=== PATIENT | male | born 1995 | race Caucasian/White ===

== ENCOUNTER 2016-10-30 21:40 | Emergency (ER) | payer SELFPAY ==
[2016-10-30 21:45] VITALS: BP 114/69; BMI 28.1
--- NOTE | 2016-10-30 22:07 | DR.GENAD ---
HPI - PCP Primary Care Physician: nfd - Complaint/Symptoms Chief Complaint Doctors Comments: Patient denies history of cardiopulmonary disease. Chief Complaint:: pt states" for the past month my chest has been hurting and my vision gets distorted and i feel dizzy" - Source History Provided: Patient - Mode of Arrival Mode of Arrival: Ambulatory - Timing Onset of Chief Complaint: 10/09/16 PMH - PMH Past Medical History: No Past Medical History: GERD Past Surgical History: No Surgical History: No History - Family History History of Family Medical Conditions: Yes Family Medical History: Hypertension - Social History Does patient currently use any type of tobacco product: Yes Alcohol Use: Occasionally Do you use any recreational Drugs:: No Lives With: Family Lives Where: Home - infectious screening In the last 2 months have you had wt loss of >10#?: NO Have you had fever, night sweats or hemotysis?: No Have you traveled outside the country in the last 6 months?: No Isolation: Standard ROS - Review of Systems Constitutional: No Symptoms Reported Eyes: No Symptoms Reported ENTM: No Symptoms Reported Respiratoy: No Symptoms Reported Cardiovascular: No Symptoms Reported Gastrointestinal/Abdominal: No Symptoms Reported Genitourinary: No Symptoms Reported Neurological: No Symptoms Reported Musculoskeletal: No Symptoms Reported Integumentary: No Symptoms Reported Hematologic/Lymphatic: No Symptoms Reported Endocrine: No Symptoms Reported Psychiatric: No Symptoms Reported All Other Systems: Reviewed and Negative PE - Vital Signs Vitals: Temperature 98.3 F Pulse Rate 73 Respiratory Rate 18 Blood Pressure 114/69 O2 Sat by Pulse Oximetry 100 - General Limitations: No Limitations General Appearance: Alert, In No Apparent Distress - Head Head Exam: Normal Inspection, Atraumatic - ENT ENT Exam: Normal Exam, Normal Oropharynx External Ear Exam: Normal External Inspection TM/Canal Exam: Bilateral Normal Nose Exam: Normal Nose Exam Mouth Exam: Normal Inspection Throat Exam: Normal Inspection - Neck Neck Exam: Normal Inspection, Full ROM - Chest Chest Inspection: Normal Inspection - Respiratory Respiratory Exam: Normal Lung Sounds Bilat Respiratory Exam: Bilateral Clear to Auscultation - Cardiovascular Cardiovascular Exam: Regular Rate, Normal Rhythm - Abdominal Exam Abdominal Exam: Normal Inspection Abdominal Tenderness: negative: RUQ, RLQ, LUQ, LLQ, Epigastrium, Suprapubic, Diffuse, Mild, Moderate, Severe, Other - Extremities Extremities Exam: Normal Inspection - Back Back Exam: Normal Inspection, Full ROM - Neurologic Neurological Exam: Alert, Oriented X3, CN II-XII Intact - Psychiatric Psychiatric Exam: Normal Affect - Skin Skin Exam: Warm, Dry ROR - Labs Reviewed Result Diagrams: 10/30/16 22:25 10/30/16 22: Laboratory: WBC 5.5 X10^3/uL (3.6-10.0) 10/30/16 22: RBC 5.29 X10^6/uL (4.7-6.0) 10/30/16 22:25 Hgb 15.5 g/dL (13.5-18.0) 10/30/16 22: Hct 45.0 % (42.0-54.0) 10/30/16: MCV 85.0 fL (80.0-100.0) 10/30/16: MCH 29.3 pg (27.0-34.0) 10/30/16: MCHC 34.5 g/dL (33.0-35.0) 10/30/16: RDW 12.6 % (11.6-16.5) 10/30/16: Plt Count 171 X10^3/uL (150.0-450.0) 10/30/16 22: MPV 8.0 fL (7.4-11.0) 10/30/16 22: Neut % 52.4 % (42.0-75.0) 10/30/16 22: Lymph % 38.4 % (21.0-51.0) 10/30/16 22: [place] % 6.7 % (0.0-13.0) 10/30/16 22: Eos % 2.0 % (0.9-2.9) 10/30/16 22: Baso % 0.5 % (0.2-1.0) 10/30/16: Neut # 2.9 x10^3/uL (2.2-4.8) 10/30/16 22: Lymph # 2.1 X10^3/uL (1.3-2.9) 10/30/16 22:25 [place] # 0.4 x10^3/uL (0.3-0.8) 10/30/16 22:25 Eos # 0.1 x10^3/uL (0.0-0.2) 10/30/16 22:25 Baso # 0.0 X10^3/uL (0.0-0.1) 10/30/16 22:25 Absolute Nucleated RBC 0.0 /100WBC 10/30/16 22:25 Sodium 145 mmol/L (136-145) 10/30/16 22:25 Corrected Sodium 145 mmol/L (136-145) 10/30/16 22:25 Potassium 3.9 mmol/L (3.5-5.1) 10/30/16 22:25 Chloride 107 mmol/L (98-107) 10/30/16 22:25 Carbon Dioxide 29.7 mmol/L (21-32) 10/30/16 22:25 BUN 12 mg/dL (7-18) 10/30/16 22:25 Creatinine 1.14 mg/dL (0.70-1.30) 10/30/16 22:25 Est GFR (MDRD) Af Amer > 60 (>60) 10/30/16 22:25 Est GFR (MDRD) Non-Af > 60 (>60) 10/30/16 22:25 Glucose 112 mg/dL (65-99) H 10/30/16 22:25 Calcium 8.6 mg/dL (8.5-10.1) 10/30/16 22:25 Corrected Calcium TNP 10/30/16 22:25 Total Bilirubin 0.20 mg/dL (0.2-1.0) 10/30/16 22:25 AST 13 Units/L (15-37) L 10/30/16 22:25 ALT 24 Units/L (12-78) 10/30/16 22:25 Alkaline Phosphatase 69 Units/L (46-116) 10/30/16 22:25 Total Protein 7.2 g/dL (6.4-8.2) 10/30/16 22:25 Albumin 4.1 g/dL (3.4-5.0) 10/30/16 22:25 Globulin 3.1 g/dL (2.5-4.5) 10/30/16 22:25 Albumin/Globulin Ratio 1.3 Ratio (1.1-2.1) 10/30/16 22:25 - Other Results Comments: visual acuity 20/50 OD,20/25OS; 20/20 ou - Diagnosis Discharge Problem: Dizziness - Discharge Plan Condition: Stable - Follow ups/Referrals Follow ups/Referrals: NFD,None [Primary Care Provider] - 3 days - Instructions
[2016-10-30 22:32] LABS: BASOPHILS % (AUTO) 0.5 % (0.2-1.0); EOSINOPHILS # (AUTO) 0.1 x10^3/uL (0.0-0.2); HEMOGLOBIN 15.5 g/dL (13.5-18.0); LYMPHOCYTES # (AUTO) 2.1 X10^3/uL (1.3-2.9); LYMPHOCYTES % (AUTO) 38.4 % (21.0-51.0); MEAN CORPUSCULAR HEMOGLOBIN 29.3 pg (27.0-34.0); MEAN CORPUSCULAR HGB CONC 34.5 g/dL (33.0-35.0); MONOCYTES # (AUTO) 0.4 x10^3/uL (0.3-0.8); MONOCYTES % (AUTO) 6.7 % (0.0-13.0); NEUTROPHILS # (AUTO) 2.9 x10^3/uL (2.2-4.8); NEUTROPHILS % (AUTO) 52.4 % (42.0-75.0); PLATELET COUNT 171 X10^3/uL (150.0-450.0); RED BLOOD COUNT 5.29 X10^6/uL (4.7-6.0); RED CELL DISTRIBUTION WIDTH 12.6 % (11.6-16.5); WHITE BLOOD COUNT 5.5 X10^3/uL (3.6-10.0)
[2016-10-30 22:43] LABS: ALANINE AMINOTRANSFERASE 24 Units/L (12-78); ALBUMIN 4.1 g/dL (3.4-5.0); ALKALINE PHOSPHATASE 69 Units/L (46-116); ASPARTATE AMINO TRANSFERASE 13 Units/L (15-37); BLOOD UREA NITROGEN 12 mg/dL (7-18); CALCIUM 8.6 mg/dL (8.5-10.1); CARBON DIOXIDE 29.7 mmol/L (21-32); CHLORIDE 107 mmol/L (98-107); COR NA(FOR HYPERGLY) 145 mmol/L (136-145); CREATININE 1.14 mg/dL (0.70-1.30); GLUCOSE 112 mg/dL (65-99); SODIUM 145 mmol/L (136-145); TOTAL PROTEIN 7.2 g/dL (6.4-8.2); eGFR BLACK RACES > 60 (>60); eGFR NON BLACK RACES > 60 (>60)
== END 2016-10-30 23:00 | disposition home or self-care (01) ==
LOC: ER 21:50
DX: R42 Dizziness and giddiness (principal)
CPT/HCPCS: 36415; 80053; 85025; 99282